=== PATIENT | male | born 1990 | race Caucasian/White ===

== ENCOUNTER 2021-01-17 02:46 | Emergency (ER) | payer OTHER ==
[~2021-01-17 02:46] MED LIST: AZITHROMYCIN250 MG PO; CYCLOBENZAPRINE5 MG PO
[2021-01-17 03:23] LABS: RED BLOOD COUNT 4.67 M/UL (4.20-5.50); WHITE BLOOD COUNT 7.3 K/UL (4.5-11.0)
[2021-01-17 03:53] LABS: BUN/CREATININE RATIO 12 (0-10)
== END 2021-01-17 06:22 | disposition home or self-care (01) ==
LOC: ER1 02:46
PROVIDERS: Physician Assistant
DX: K80.20 Calculus of gallbladder without cholecystitis without obstruction (principal)
CPT/HCPCS: 80053; 81001; 82550; 82553; 83605; 83690; 83874; 84484; 85025; 87086; 93005; 96374; 96375; 99284; J1885; J2270; J2405; J7040; Q9967